=== PATIENT | male | born 2005 | race Two or more races ===

== ENCOUNTER 2025-03-14 07:19 | Emergency (ER) | payer OTHER ==
[~2025-03-14] VITALS: Ht 170.2 cm; Wt 84.1 kg
[2025-03-14 07:22] VITALS: TEMP 98.6
[2025-03-14] MEDS ORDERED: MAG HYDROX/ALUMINUM HYD/SIMETH ES 30 ML SUSPENSION UDCUP PO ONE (07:45)
[2025-03-14 09:04] VITALS: BP 124/72; PULSE 82; RESP 16; O2SAT 99
== END 2025-03-14 11:17 ==
LOC: EMS 07:25
DX: S40.012A Contusion of left shoulder, initial encounter (principal); H92.02 Otalgia, left ear; F10.90 Alcohol use, unspecified, uncomplicated; V89.2XXA Person injured in unspecified motor-vehicle accident, traffic, initial encounter; Y93.89 Activity, other specified; Y92.89 Other specified places as the place of occurrence of the external cause; Y99.8 Other external cause status; Y90.9 Presence of alcohol in blood, level not specified
CPT/HCPCS: 99283